=== PATIENT | female | born 1965 | race Caucasian/White ===

== ENCOUNTER 2024-12-31 16:37 | Emergency (ER) | payer OTHER, SELFPAY ==
--- NOTE | ~2024-12-31 | XR_ITS ---
XR chest 2V Ordering provider: Ana Ma NP History: 59 years Female with . cough 2 wks . Comparison: None. FINDINGS: MEDIASTINUM: The cardiac silhouette is not enlarged. LUNGS: No effusions or pneumothorax. Minimal opacification the lung bases medially is seen suggestive of atelectasis versus pneumonia OTHER: No free air under the diaphragm. IMPRESSION: Bibasilar pneumonia seen medially. Reviewed, dictated and finalized at location A.
[2024-12-31 16:44] VITALS: BP 124/78; PULSE 79; RESP 20; TEMP 37.2; O2SAT 96
--- NOTE | 2024-12-31 17:29 | ED_ITS ---
HPI - URI/Sore Throat General Chief Complaint: Upper Respiratory Infection Stated Complaint: Cough/Fatigue Time Seen by Provider: 12/31/24 17:29 Source: patient Mode of arrival: ambulatory Limitations: no limitations History of Present Illness HPI Narrative: 59 yo F presents with c/o cough for 2 wks. Reports increase in coughing, fatigue, chest congestion past 3 days. Called PCP office today regarding symptoms and they recommend she get a chest x-ray. all systems reviewed and negative except as noted above. Related Data Home Medications ?Medication ?Instructions ?Recorded ?Confirmed ?Last Taken ?Type atorvastatin 20 mg tablet mg 12/31/24 Unknown History buspirone 15 mg tablet mg 12/31/24 Unknown History escitalopram oxalate 20 mg tablet mg 12/31/24 Unknown History sumatriptan succinate 50 mg tablet mg PO 12/31/24 Unknown History Allergies Allergy/AdvReac Type Severity Reaction Status Date / Time No Known Allergies Allergy Unverified 03/21/18 10:40 Review of Systems Review of Systems: CONSTITUTIONAL: Denies fever, chills, or sweats. reports fatigue EYES: Denies visual changes, redness, or discharge. ENT: Denies rhinorrhea, congestion, sore throat, or otalgia. CARDIOVASCULAR: Denies chest pain, palpitations, or edema. RESPIRATORY: Reports cough , chest congestion, dyspnea with exertion. GASTROINTESTINAL: Denies abdominal pain, nausea, vomiting, or diarrhea. GENITOURINARY: Denies dysuria or hematuria. SKIN: Denies rash or itching. MUSCULOSKELETAL: Denies back pain, joint pain, or myalgia. NEUROLOGIC: Denies headache, numbness, or weakness. PSYCHIATRIC: Denies anxiety or depression. All other systems reviewed are negative, except as documented in HPI. PMFSH Comments At time of signature, agree with nursing past medical, surgical, social and family history. There is no relevant family history pertinent to the presenting complaint. Exam Narrative: GENERAL: This is a well-nourished, well-developed patient, Ill-appearing but no acute distress HEAD: normocephalic, atraumatic. EYES: PERRL. Sclera clear/white. Vision is grossly intact. EARS: External ears normal, auditory canals clear and without drainage, TMs normal without perforation. Hearing grossly intact. NOSE: External nose normal with no obvious nasal discharge, nares without redness, no rhinorrhea. THROAT: Mucous membranes moist, posterior pharynx clear. NECK: Neck supple, non-tender without lymphadenopathy, masses or thyromegaly. CARDIOVASCULAR: Regular rate and rhythm without murmurs, gallops, or rubs. RESPIRATORY: decreased to bilateral lower lobes with mild expiratory wheeze. Breath sounds equal bilaterally. No rales, or rhonchi. SKIN: warm, Dry, intact with no suspicious lesions or rash, good texture and turgor. NEURO: awake, alert, and oriented to person, place and time. There were no obvious focal neurologic abnormalities. EXTREMITIES: No joint tenderness, effusion, or edema noted. Course Course Level of Care: Express Care Visit Vital Signs Vital signs: Vital Signs Temperature 37.2 C 12/31/24 16:44 Pulse Rate 79 12/31/24 16:44 Respiratory Rate 20 12/31/24 16:44 Blood Pressure 124/78 12/31/24 16:44 Pulse Oximetry 96 12/31/24 16:44 Oxygen Delivery Room Air 12/31/24 16:44 Temperature 37.2 C 12/31/24 16:44 Pulse Rate 79 12/31/24 16:44 Respiratory Rate 20 12/31/24 16:44 Blood Pressure 124/78 12/31/24 16:44 Pulse Oximetry 96 12/31/24 16:44 Oxygen Delivery Room Air 12/31/24 16:44 reviewed MDM - URI/Sore Throat MDM Narrative Medical decision making narrative: chest x-ray shows bilateral pneumonia. Discussed results with patient. Will prescribe doxycycline. Patient is alert, nontoxic. No respiratory distress. Please be advised this is a medical document. It is intended for oewv-jv-sjbh communication. It is written in medical language and may contain unfamiliar abbreviations or verbiage. Medical documents are intended to carry relevant information, facts as evident, and the clinical opinion of the practitioner at the time of the encounter. This report may have been done utilizing a voice recognition system. Attempts have been made to correct errors. However, there may be uncorrected grammatical, spelling, and recognition errors present. The file time of this note does not necessarily represent the time of service. Imaging Data My impression: Agree with radiologist Radiologist's impression: XR chest 2V Ordering provider: Ana Ma NP History: 59 years Female with . cough 2 wks . Comparison: None. FINDINGS: MEDIASTINUM: The cardiac silhouette is not enlarged. LUNGS: No effusions or pneumothorax. Minimal opacification the lung bases medially is seen suggestive of atelectasis versus pneumonia OTHER: No free air under the diaphragm. IMPRESSION: Bibasilar pneumonia seen medially. Discharge Plan Discharge Clinical Impression: Pneumonia Qualifiers: Pneumonia type: due to unspecified organism Laterality: bilateral Patient Disposition: Home Condition: Stable Instructions: Antibiotic Form, Pneumonia (ED) Additional Instructions: the x-ray of your chest showed pneumonia. Take medications as prescribed. Take ibuprofen or Tylenol every 6-8 hours as needed for pain and fever. Drink plenty of water and rest. Follow-up with your primary care physician if symptoms are not improving. Patient Language: Uruguayan Prescriptions: New doxycycline hyclate 100 mg capsule 100 mg PO BID 7 Days Qty: 14 0RF benzonatate 200 mg capsule 200 mg PO TID PRN (Reason: cough) Qty: 20 0RF methylprednisolone [Medrol (Martin)] 4 mg tablets,dose pack See Rx Instructions PO .COMPLEX Qty: 21 0RF Rx Instructions: orally per package directions No Action atorvastatin 20 mg tablet sumatriptan succinate 50 mg tablet PO buspirone 15 mg tablet escitalopram oxalate 20 mg tablet Follow-up/Referrals: Tavon,CON Quijano [Primary Care Provider] - Stand Alone Forms: Work/School Release IP Time of Disposition: 17:57
--- OUTSIDE RECORDS SUMMARY | 2024-12-31 17:48 | XMS_ITS | Encounter Summary ---
Author Organization [facility] Address [address] [place] [address] Phone Care Team Providers Care Turnaround Planner Name Role Phone Nerissa Montes De Oca PAC Unavailable Nerissa Montes De Oca PAC Primary Care Provider + Encounter Details Date Type Department Care Team (Late st Contact Info) Description 09/06/2024 Transcribe Orders [facility] HealthCare Call Center [address] [place] [address] Nerissa Montes De Oca, PAC [address] [place] [address] Breast cancer screening by mammogram (Primary Dx) Social History Tobacco Use Types Packs/Day Years Used Date Smoking Tobacco: Every Day Cigarettes 1 25 Smokeless Tobacco: Never Alcohol Use Standard Drinks/Week Comments Yes 0 (1 standard drink = 0.6 oz pur e alcohol) occassional [facility] Utilities Answer Date Recorded In the past 12 months has [employer] electric, gas, oil, or water company threatened to shut off services in your home? No 05/17/2024 Social Connection and Isolat ion Panel [NHANES] Answer Date Recorded In a typical week, how many times do you talk on the phone with family, friends, or neighbors? More than three times a week 05/17/2024 How often do you get togethe r with friends or relatives? Twice a week 05/17/2024 Attends [employer] Services Not on file 05/17 Active Member of Clubs or Organizations Not on f ile 05/17/2024 Attends Club or Organization Meetings Not on alejandra e 05/17/2024 Marital Status Not on file 05/17/2024 AUDIT-C Answer Date Recorded Q1: How often do you have a drink containing alc ohol? 2-4 times a month 05/17/2024 Q2: How many drinks containi ng alcohol do you have on a typical day when you are drinking? 1 or 2 05/17/2024 Q3: How often do you have si x or more drinks on one occasion? Never 05/17/2024 Overall Financial Resource Strain (CARDIA) Answe r Date Recorded How hard is it for you to pa y for the very basics like food, housing, medical care, and heating? Very hard 05/17/2024 PHQ-2 Answer Date Recorded Total Score - Questions 1-9 0 11/2023 [employer] of Occupat ional [facility] - Occupational Stress Questionnaire Answer Date Recorded Do you feel stress - tense, restless, nervous, or anxious, or unable to sleep at night because your mind is troubled all the time - these days? Rather much 05/17/2024 Exercise Vital Sign Answer Date Recorde d On average, how many days pe r week do you engage in moderate to strenuous exercise (like a brisk walk)? Patient declined On average, how many minutes do you engage in exercise at this level? 0 min 05/17/2024 Hunger Vital Sign Answer Date Recorded Within the past 12 months, y ou worried that your food would run out before you got the money to buy more. Never true 05/17/20 24 Within the past 12 months, t he food you bought just didn't last and you didn't have money to get more. Never true 05/17/2024 PRAPARE - Transportation Answer Date Re corded In the past 12 months, has l ack of transportation kept you from medical appointments or from getting medications? No 04/20 In the past 12 months, has l ack of transportation kept you from meetings, work, or from getting things needed for daily living? No 05/17/2024 Housing Stability Vital Sign Answer Kalpesh e Recorded In the last 12 months, was t here a time when you were not able to pay the mortgage or rent on time? No 05/17/2024 Number of Times Moved in the Last Year Not on fi le 05/17/2024 At any time in the past 12 m [facility], were you homeless or living in a prison (including now)? No 05/17/2024 Sexually Active Control Partners Comments Yes Male Comments No Sex and Gender Information Value Date Recorded Sex Assigned at Not on file Legal Sex Female 7:39 PM CDT Gender Identity Not on file Sexual Orientation Not on file documented as of this encounter Plan of Treatment Upcoming Encounters Date Type Department Care Team (Late st Contact Info) Description 03/12/2025 3:45 PM CDT Office Visit [facility] - Family Medicine [facility] [address] [place] [address] Nerissa Montes De Oca PAC [address] [place] [address] documented as of this encounter Visit Diagnoses Diagnosis Breast cancer screening by mammogram- Primary documented in this encounter Additional Health Concerns Assessment Noted Time PHQ-9 Depression Total Score: 0 08/21/20 24 1:43 PM MANAGER ASSESSMENT documented as of this encounter Care Teams Turnaround Planner Relationship Specialty Start Date End Date Nerissa Montes De Oca PAC [address] [place] [address] PCP - General Physician Excellence Coach 04/27/21 Nerissa Montes De Oca PAC [address] [place] [address] Physician Excellence Coach Physician Excellence Coach 04/20/21 documented as of this encounter
--- OUTSIDE RECORDS SUMMARY | 2024-12-31 17:48 | XMS_ITS | Clinical Summary ---
Author Organization [facility] Address [address] [place] [address] Phone Care Team Providers Care Vp Director Of Creative Strategy Name Role Phone Tavon Sanjuana PAC Unavailable [phone] Nerissa Montes De Oca Primary Care Provider + Allergies No known active allergies Medications Multiple Vitamin (MULTI-VITAMIN PO) Take by mouth daily. Active atorvastatin (LIPITOR) 20 MG TabletIndications: Hyperlipidemia, unspecified hyperlipidemia type Take 1 Tablet by mouth daily. 90 Tablet 3 03/21/20 24 Active hydrOXYzine (ATARAX) 25 MG TabletIndications: Insomnia, unspecified type Take 1 Tablet by mouth nightly as needed for Sleep. 30 Tablet 05/17/20 24 Active escitalopram (LEXAPRO) 20 MG TabletIndications: Anxiety Take 1 Tablet by mouth daily. 90 Tablet 1 08/21/20 24 Active busPIRone (BUSPAR) 15 MG Tablet Take 0.5 Tablets by mouth 2 times daily. 60 Tablet 11/23/19 25 Active Additional Information Patient taking differently:7.5 mg Oral 2 TIMES DAILY, NEEDED, Reported on 12/28/2024 SUMAtriptan (IMITREX) 50 MG Tablet Take 1 Tablet by mouth once as needed for Migraine. Use as directed. May repeat dose in 2 hours if headache recurs. 9 Tablet 3 11/23/19 25 Active Additional Information Patient not taking.Reported on 12/28/2024 fluticasone (FLONASE) 50 MCG/ACT Suspension 2 Sprays by Nasal route daily. Use in each nostril as directed. 16 g 3 11/23/19 25 Active Active Problems Problem Noted Date Diagnosed Date Hyperlipidemia 08/21/2024 Anxiety 04/27/2021 Encounters Date Type Department Care Team Description 12/28/2024 [facility] [address] [place] [address] Nerissa Montes De Oca PAC Advice Only; Fever; Cough; Sinus Problem 11/22/2024 11:15 AM PETROLEUM REFINERY WORKER Office Visit [facility] [place] [place] [address] [place] [address] Nerissa Montes De Oca PAC Anxiety (Primary Dx); Hyperlipidemia, unspecified hyperlipidemia type; Other migraine without status migrainosus, not intractable Discharge Disposition: Discharged to home or Selfcare 11/22/2024 Travel 10/23/2024 Refill [facility] [place] [place] [address] [place] [address] Nerissa Montes De Oca PAC Medication Refill 10/04/2024 7:34 AM PETROLEUM REFINERY WORKER - 10/04/2024 11:59 PM PETROLEUM REFINERY WORKER [facility] [address] [place] [address] Nerissa Montes De Oca PAC Discharge Disposition: Discharged to home or Selfcare 10/04/2024 Travel from Last 3 Months Immunizations Immunization Administration Dates Next Due Covid-19, Mrna, Lnp-s, Pf, 30 Mcg/0.3 Ml Dose (P fizer) 12/22/2020,12/01/2020 Covid-19, Mrna, Lnp-s, Pf, 3 0 Mcg/0.3 Ml Dose, Ash-sucrose (Pfizer cabrera top) 04/07/2022 Influenza Vaccine less than 3 yrs 07/22/2024 Influenza Vaccine, Quadrivalent, PF 08/30/2022,1 Influenza, Recombinant, Quadrivalent,injectable, Pf 07/01/2020 Influenza,Split Virus,Trivalent,Injectable,PF Family History Medical History Relation Name Comments No Known Problems Brother Diabetes Father Heart Attack Father Heart Surgery Father Heart transp;a nt Hypertension Father Cancer Maternal Grandmother colon Anemia Mother Cancer Mother Hypertension Mother Lung Cancer Mother Migraines Mother No Known Problems Son 1 No Known Problems Son 2 No Known Problems Son 3 Relation Name Status Comments Brother Father Maternal Grandmother Mother Alive Son 1 Son 2 Son 3 Social History Tobacco Use Types Packs/Day Years Used Date Smoking Tobacco: Every Day Cigarettes 1 25 Smokeless Tobacco: Never Tobacco Cessation:Ready to Q uit: Not Asked; Counseling Given: Not Answered Alcohol Use Standard Drinks/Week Comments Yes 0 (1 standard drink = 0.6 oz pur e alcohol) occassional [facility] Utilities Answer Date Recorded In the past 12 months has e [employer], gas, oil, or water [employer] threatened to shut off services in your home? Patient declined 11/22/2024 Social Connection and Isolat ion Panel [NHANES] Answer Date Recorded In a typical week, how many times do you talk on the phone with family, friends, or neighbors? More than three times a week 11/22/2024 How often do you get togethe r with friends or relatives? More than three times a week 11/22/2024 How often do you attend chur ch or jew services? Never 11/22/2024 Do you belong to any clubs o r organizations such as holiness groups, unions, fraternal or athletic groups, or school groups? No 11/22/2024 How often do you attend meet ings of the clubs or organizations you belong to? Never 11/22/2024 Are you , , di vorced, , never , or living with a partner? Living with partner 11/22/2024 AUDIT-C Answer Date Recorded Q1: How often do you have a drink containing alc ohol? Patient declined 11/22/2024 Q2: How many drinks containi ng alcohol do you have on a typical day when you are drinking? 1 or 2 11/22/2024 Q3: How often do you have si x or more drinks on one occasion? Never 11/22/2024 Overall Financial Resource Strain (CARDIA) Answe r Date Recorded How hard is it for you to pa y for the very basics like food, housing, medical care, and heating? Hard 11/22/2024 PHQ-2 Answer Date Recorded Total Score - Questions 1-9 10 02/2025 [facility] - Occupational Stress Questionnaire Answer Date Recorded Do you feel stress - tense, restless, nervous, or anxious, or unable to sleep at night because your mind is troubled all the time - these days? Only a little 11/22/2024 Exercise Vital Sign Answer Date Recorde d On average, how many days pe r week do you engage in moderate to strenuous exercise (like a brisk walk)? 0 days 11/22/2024 On average, how many minutes do you engage in exercise at this level? 0 min 11/22/2024 Hunger Vital Sign Answer Date Recorded Within the past 12 months, y ou worried that your food would run out before you got the money to buy more. Patient declined Within the past 12 months, t he food you bought just didn't last and you didn't have money to get more. Never true 02/2025 PRAPARE - Transportation Answer Date Re corded In the past 12 months, has l ack of transportation kept you from medical appointments or from getting medications? No 02/2025 In the past 12 months, has l ack of transportation kept you from meetings, work, or from getting things needed for daily living? No 11/22/2024 Housing Stability Vital Sign Answer Kalpesh e Recorded In the last 12 months, was t here a time when you were not able to pay the mortgage or rent on time? Yes 11/22/2024 In the past 12 months, how m any times have you moved where you were living? 0 11/22/2024 At any time in the past 12 m [facility], were you homeless or living in a [facility] (including now)? No 11/22/2024 Sexually Active Control Partners Comments Yes Male Comments No Sex and Gender Information Value Date Recorded Sex Assigned at Not on file Legal Sex Female 7:39 PM CDT Gender Identity Not on file Sexual Orientation Not on file Last Filed Vital Signs Vital Sign Reading Time Taken Comments Blood Pressure 118/80 11/22/2024 11:06 AM PETROLEUM REFINERY WORKER Pulse 72 11/22/2024 11:06 AM PETROLEUM REFINERY WORKER Temperature 36.4 C (97.6 F) 11/22/2024 11:06 AM PETROLEUM REFINERY WORKER Respiratory Rate 16 05/17/2024 1:23 PM CDT Oxygen Saturation 98% 11/22/2024 11:06 AM PETROLEUM REFINERY WORKER Inhaled Oxygen Concentration - - Weight 66.7 kg (147 lb) 11/22/2024 11:06 AM PETROLEUM REFINERY WORKER Height 157.5 cm (5' 2 ) 11/22/2024 11:06 AM PETROLEUM REFINERY WORKER Body Mass Index 26.89 11/22/2024 11:06 AM PETROLEUM REFINERY WORKER Plan of Treatment Upcoming Encounters Date Type Department Care Team (Late st Contact Info) Description 03/12/2025 3:45 PM CDT Office Visit [facility] - [facility] Medicine [facility] [address] [place] [address] Nerissa Montes De Oca, PAC [address] [place] [address] Health Maintenance Due Date Last Done Comments TdaP Immunization 1967 Hepatitis B Immunization (1 of 3 - 19+ 3-dose series) 1986 Pneumococcal Immunization (50+ years) (1 of 2 - PCV) 1986 Cologuard 2017 Immunochemical Fecal Occult Blood 2017 Lung Cancer Screening 2017 Zoster Immunization (1 of 2) 2017 SARS-COV-2 Immunization ( season) 2024 04/07/2022, 12/22/2020, 12/01/2020 Mammogram 10/04/2025 10/04/2024, 08/19, 07/12/2022, Additional history exists Colonoscopy 02/15/2029 02/16/2024, 10/05/2021 Colorectal Cancer Screening 02/15/2029 Respiratory Syncytial Virus (RSV) Immunization (Adult) (1 - 1-dose 75+ series) 2042 02/16/2024, 10/05/2021 Influenza Immunization Completed , 07/06/2024, 08/30/2022, Additional history exists Hepatitis C Virus (HCV) Screening Discontinued Meningococcal Immunization (ACWY) Aged Out No longer eligible based on patient's age to complete this topic Rotavirus Immunization Aged Out No lo nger eligible based on patient's age to complete this topic Procedures Procedure Name Priority Date/Time Associated Diagnosis Comments SHAWN SCREENING BILATERAL DIGITAL W CAD W EVAN Routine 10/04/2024 7:52 AM PETROLEUM REFINERY WORKER Breast cancer screening by mammogram from Last 3 Months Results * SHAWN SCREENING BILATERAL DIGITAL W CAD W EVAN (10/04/2024 7:52 AM PETROLEUM REFINERY WORKER) Anatomical Region Laterality Modality breast Bilateral Mammography 10/04/2024 8:35 AM PETROLEUM REFINERY WORKER Narrative 10/04/2024 3:37 PM PETROLEUM REFINERY WORKER - SHAWN SCREENING BILATERAL DIGITAL W CAD W EVAN BILATERAL DIGITAL SCREENING MAMMOGRAM 3D/2D WITH CAD WITH MEDIOLATERAL OBLIQUE CRANIOCAUDAL: 10/04/2024 The study was acquired using digital technology and interpreted from soft copy. Current study was also evaluated with Knowledgestre[employer] version 7.2. 2D digital mammographic views, as well as 3D digital tomosynthesis were performed in the CC and MLO projections. CLINICAL: Routine screening. Patient has no complaints. No personal history of cancer. No family history of breast cancer. COMPARISONS: Comparison is made to exams dated: 07/12/2022, 08/29/2023, [facility] BREAST TISSUE:There are scattered areas of fibroglandular density. FINDINGS: No significant masses, calcifications, or other findings are seen in either breast. There has been no significant interval change. IMPRESSION: NEGATIVE There is no mammographic evidence of malignancy. A 1 year screening mammogram is recommended. A letter will be sent to the patient with these results. The patient will be entered into a reminder system with a target due date of 1 year for her next screening exam. Electronically signed by: Libby ortega/linda:10/04/2024 15:18:48 Lumber Cutter(s): RT Jennifer(R)(M), [facility] letter sent: Normal Exam Reading location: [facility] Mammogram BI-RADS: Category 1: Negative Procedure Note Libby Mak MD - 10/04/2024 - SHAWN SCREENING BILATERAL DIGITAL W CAD W EVAN BILATERAL DIGITAL SCREENING MAMMOGRAM 3D/2D WITH CAD WITH MEDIOLATERAL OBLIQUE CRANIOCAUDAL: 10/04/2024 The study was acquired using digital technology and interpreted from soft copy. Current study was also evaluated with ICAD version 7.2. 2D digital mammographic views, as well as 3D digital tomosynthesis were performed in the CC and MLO projections. CLINICAL: Routine screening. Patient has no complaints. No personal history of cancer. No family history of breast cancer. COMPARISONS: Comparison is made to exams dated: 07/12/2022, 08/29/2023, and 06/26/2021 [facility]. BREAST TISSUE:There are scattered areas of fibroglandular density. FINDINGS: No significant masses, calcifications, or other findings are seen in either breast. There has been no significant interval change. IMPRESSION: NEGATIVE There is no mammographic evidence of malignancy. A 1 year screening mammogram is recommended. A letter will be sent to the patient with these results. The patient will be entered into a reminder system with a target due date of 1 year for her next screening exam. Electronically signed by: Libby ortega/linda:10/04/2024 15:18:48 Lumber Cutter(s): RT Jennifer(Maral)(M), [facility] letter sent: Normal Exam Reading location: [facility] Mammogram BI-RADS: Category 1: Negative Nerissa Montes De Oca PAC IMG MAMMO ORDERABLES Fin al Result from Last 3 Months Insurance [facility] [employer] [facility] Care Teams Vp Director Of Creative Strategy Relationship Specialty Start Date End Date Nerissa Montes De Oca PAC [address] [place] [address] PCP - General Physician Cytology Laboratory Manager 04/27/21 Nerissa Montes De Oca PAC [address] [place] [address] Physician Cytology Laboratory Manager Physician Cytology Laboratory Manager 04/20/21
--- OUTSIDE RECORDS SUMMARY | 2024-12-31 17:48 | XMS_ITS | Encounter Summary ---
Author Organization [facility] Address [address] [place] [address] Phone Care Team Providers Care Cna Per Diem Name Role Phone TavonNerissae PAC Unavailable [phone] Nerissa Montes De Oca PAC Primary Care Provider + Reason for Visit * Reason Onset Date Comments Advice Only 12/28/2024 Fever 12/28/2024 Cough 12/28/2024 Sinus Problem 12/28/2024 Encounter Details Date Type Department Care Team (Late st Contact Info) Description 12/28/2024 Nurse Triage [facility] [address] [place] [address] Nerissa Montes De Oca, PAC [address] [place] [address] Advice Only; Fever; Cough; Sinus Problem Social History Tobacco Use Types Packs/Day Years Used Date Smoking Tobacco: Every Day Cigarettes 1 25 Smokeless Tobacco: Never Alcohol Use Standard Drinks/Week Comments Yes 0 (1 standard drink = 0.6 oz pur e alcohol) occassional [facility] Utilities Answer Date Recorded In the past 12 months has e electric, gas, oil, or water company threatened [...] often do you attend chur ch or jehovah's witness services? Never 11/22/2024 Do you belong to any clubs o r organizations such as anabaptism groups, unions, fraternal or athletic groups, or [...] Total Score - Questions 1-9 10 02/2025 [facility] - Occupational Stress Questionnaire Answer Date Recorded [...] any time in the past 12 m [facility], were you homeless or living in a custodial (including now)? No 11/22/2024 Sexually Active Control Partners Comments Yes Male Comments No Sex and Gender Information Value Date Recorded Sex Assigned at Not on file Legal Sex Female 7:39 PM CDT Gender Identity Not on file Sexual Orientation Not on file documented as of this encounter Miscellaneous Notes * Telephone Encounter - Cori Yarbrough RN - 12/31/2024 4:01 PM CDT Situation: Follow Up Background: Estee Baker contacting PCP office. Returning missed call. Assessment: Darshana Sidhu RN 12/31/24 3:47 PM LVM for patient to advise prompt care or OV to be evaluated for concern of potential pneumonia. Advised that prompt care does have x-ray available if needed. Recommendation: Estee verbalized understanding. No further questions or concerns. Agreed to going to prompt care. * Telephone Encounter - Darshana Sidhu RN - 12/31/2024 3:46 PM CDT LVM for patient to advise prompt care or OV to be evaluated for concern of potential pneumonia. Advised that prompt care does have x-ray available if needed. * Telephone Encounter - Nerissa Montes De Oca PAC - 12/31/2024 3:35 PM CDT I am currently out of the office, recommend she is evaluated in prompt care or appointment would beconcerned if pneumonia * Telephone Encounter - Brii Dorsey RN - 12/31/2024 3:24 PM CDT S: Patient returning call. B: Advised her of provider's note below. A: States she is not any better and feels like crap. Still coughing things up and blowing her nose. Headache has improved-hasn't had one in 3 days. Fever off and on. Still fatigued-worked today and feels more exhausted after working. Stands on feet when working. Coughed so hard her ribs are sore. Denies: chest pain, shortness of breath, difficulty breathing Treatment: Has been drinking a lot of water. Taking Zyrtec, mucinex and tylenol R: Please advise. Please call patient with response. Prefers call over mychart. * Telephone Encounter - Ila Ernst RN - 12/31/2024 9:55 AM CDT LVM for patient to return call * Telephone Encounter - Nerissa Montes De Oca PAC - 12/30/2024 11:55 AM CDT Is patient feeling any better * Telephone Encounter - Sadia Grover RN - 12/28/2024 3:20 PM CDT SITUATION: Fever, cough, sinus problem BACKGROUND: Patient contacting PCP office. Per chart review, last office visit 11/22/24 ASSESSMENT: Symptom Description / Location: Patient has had a headache, fatigue, fever, and cough for a week. Productive cough, yellow mucous Feels dehydrated has drank 3-4 16oz bottles of water today. Always thirsty. Last urinated at 3PM. Denies dry mouth Fatigue. Slept 14 hours on 12/26. Denies: congestion, smell changes, current headache, sore throat Pain: Caller denies pain. Fever: Last temperature: 100.7 at 3PM. Treatment / Response: Mucinex, Zyrtec and Tylenol with no relief. RECOMMENDATION: Patient aware of disposition, but declines. She states she is going to keep taking Zyrtec, Mucinex and Tylenol for awhile and see how that does Instructed her to call back or go to urgent care for further questions or concerns Care advice provided per triage guideline. Caller verbalized understanding. Due to disposition, Encounter routed to provider high priority to notify. Discussed utilizing Status4 to: Send a message during business hours with further questions or concerns or call office number - See care advice and disposition for Guideline. First positive answer recorded, all responses to prior questions were negative. If symptoms increase, change or if new symptoms develop, call your health care provider or call back. Recommendations were based on caller information and is not a diagnosis. Verified and reviewed all triage information with caller. Reason for Disposition Fever present > 3 days (72 hours) [1] Continuous (nonstop) coughing interferes with work or school AND [2] no improvement using coughtreatment per Care Advice Protocols used: Sinus Pain or [id number]-QP, Cough - Acute Lchghrevbe-N-KH * Telephone Encounter - Gabi Minerva E - 12/28/2024 3:14 PM CDT Symptoms: Fever, Sinus Symptoms, Cough Outcome: Transfer to [facility] court justice queue Reason: Any trouble breathing The caller accepted this outcome. Caller Denied: * Can't stand (unless normally can't stand) * Acting confused * Choked on something * Trouble breathing through the mouth documented in this encounter Plan of Treatment Upcoming Encounters Date Type Department Care Team (Late st Contact Info) Description 03/12/2025 3:45 PM CDT Office Visit [facility] - [facility] [address] [place] [address] Nerissa Montes De Oca PAC [address] [place] [address] documented as of this encounter Visit Diagnoses Not on filedocumented in this encounter Additional Health Concerns Assessment Noted Time PHQ-9 Depression Total Score: 10 025 11:09 AM [employer]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
== END 2024-12-31 18:12 | disposition home or self-care (01) ==
PROVIDERS: Emergency Provider Nurse Practitioner Family; PCP Physician Assistant
DX: J18.9 Pneumonia, unspecified organism (principal); E78.00 Pure hypercholesterolemia, unspecified
CPT/HCPCS: 71046; 99213; G0463